=== PATIENT | male | born 1980 | race African-American/Black ===

== ENCOUNTER 2022-09-16 09:34 | Inpatient (IN) | payer SELFPAY ==
[2022-09-16] MEDS ORDERED: Sodium Chloride 0.9% 1,000 ML IV STA ×3 (10:22→14:48)
[2022-09-16 11:04] LABS: CORONAVIRUS COVID-19 NAA NEGATIVE (NEGATIVE); INFLUENZA A NAA NEGATIVE (NEGATIVE); INFLUENZA B NAA NEGATIVE (NEGATIVE)
[2022-09-16 11:29] LABS: CARBON DIOXIDE,CO2 16.8 mmol/L (21.0-32.0); POTASSIUM,K 5.1 mmol/L (3.5-5.1)
[2022-09-16] MEDS ORDERED: Insulin Regular in 0.9 % NACL 100 ML IV SCH (12:26)
[2022-09-16] MEDS ORDERED: Amoxicillin/Clavulanate K 875-125 MG Tab PO STA (12:41)
[2022-09-16 14:41] LABS: CARBON DIOXIDE,CO2 18.5 mmol/L (21.0-32.0)
[2022-09-16 14:42] LABS: POTASSIUM,K 5.8 mmol/L (3.5-5.1)
[2022-09-16] MEDS ORDERED: Sodium Chloride 0.9% 1,000 ML IV SCH (15:45)
[2022-09-16 18:34] LABS: POTASSIUM,K 3.6 mmol/L (3.5-5.1)
[2022-09-16] MEDS ORDERED: Potassium Chloride 10% 20 MEQ/15 ML Soln 30 ML UD Cup PO ONE (18:57)
[2022-09-16] MEDS: NS + KCl 20mEq/L 1,000 ML IV SCH (19:08)
[2022-09-16] MEDS ORDERED: Glucagon,Human Recombinant 1 MG Vial IM PRN ×2 (19:17→19:28)
[2022-09-16] MEDS ORDERED: 50% Dextrose in Water 50 ML Syringe IVPUSH PRN ×2 (19:17→19:28)
[2022-09-16] MEDS: Insulin Detemir 100 Units/ML 3 ML Pen SUBCUT SCH (20:16)
[2022-09-16] MEDS: Insulin Aspart 100 Units/ML 3 ML Pen SUBCUT SCH (20:17)
[2022-09-16 23:41] LABS: CARBON DIOXIDE,CO2 23.7 mmol/L (21.0-32.0); POTASSIUM,K 4.1 mmol/L (3.5-5.1)
[2022-09-17] MEDS: NS + KCl 20mEq/L 1,000 ML IV SCH (01:31)
[2022-09-17 05:03] LABS: CARBON DIOXIDE,CO2 19.6 mmol/L (21.0-32.0)
[2022-09-17 07:45] LABS: HEMOGLOBIN A1C >14.0 %
[2022-09-17] MEDS: Insulin Aspart 100 Units/ML 3 ML Pen SUBCUT SCH ×6 (08:14→21:05)
[2022-09-17] MEDS: Amoxicillin/Clavulanate K 875-125 MG Tab PO SCH ×2 (09:42→21:02)
[2022-09-17 10:23] LABS: CARBON DIOXIDE,CO2 22.4 mmol/L (21.0-32.0); POTASSIUM,K 4.5 mmol/L (3.5-5.1)
[2022-09-17] MEDS ORDERED: Insulin Detemir 100 Units/ML 3 ML Pen SUBCUT ONE (10:37)
[2022-09-17] MEDS ORDERED: Insulin Aspart 100 Units/ML 3 ML Pen SUBCUT ONE (10:37)
[2022-09-17 12:15] LABS: CARBON DIOXIDE,CO2 24.6 mmol/L (21.0-32.0); POTASSIUM,K 4.2 mmol/L (3.5-5.1)
[2022-09-17 16:17] LABS: POTASSIUM,K 3.9 mmol/L (3.5-5.1)
[2022-09-17] MEDS: Insulin Detemir 100 Units/ML 3 ML Pen SUBCUT SCH (21:02)
[2022-09-18 06:15] LABS: CARBON DIOXIDE,CO2 26.7 mmol/L (21.0-32.0); POTASSIUM,K 3.2 mmol/L (3.5-5.1)
[2022-09-18] MEDS ORDERED: Potassium Chloride 20 MEQ Tab.ER PO ONE (07:35)
[2022-09-18] MEDS: Insulin Aspart 100 Units/ML 3 ML Pen SUBCUT SCH ×4 (07:42→12:04)
[2022-09-18] MEDS: Amoxicillin/Clavulanate K 875-125 MG Tab PO SCH (08:17)
== END 2022-09-18 13:15 | disposition home or self-care (01) | DRG 638 ==
LOC: MW.ED 09:34 → MW.ICU 14:44 → MW.MS 09-17 17:36
PROVIDERS: ADMIT Internal Medicine; ATTEND Internal Medicine
DX: E11.10 Type 2 diabetes mellitus with ketoacidosis without coma (principal); Z68.1 Body mass index [BMI] 19.9 or less, adult; K04.7 Periapical abscess without sinus; I10 Essential (primary) hypertension; F17.200 Nicotine dependence, unspecified, uncomplicated; Z20.822 Contact with and (suspected) exposure to COVID-19; R63.4 Abnormal weight loss; Z88.6 Allergy status to analgesic agent
CPT/HCPCS: 0240U; 36415; 71045; 71045-26; 80048; 80053; 81001; 82803; 82947; 83036; 83690; 83735; 84132; 84439; 84443; 85025; 93005; 93010; 96360; 96361; 99285; 99285-25; A9270-GY; J1815; J1815-GY; J3480; J7030

== ENCOUNTER 2022-09-20 20:11 | Emergency (ER) | payer SELFPAY ==
[2022-09-20 22:24] LABS: CARBON DIOXIDE,CO2 27.1 mmol/L (21.0-32.0); POTASSIUM,K 3.9 mmol/L (3.5-5.1)
[2022-09-20] MEDS ORDERED: Insulin Aspart 100 Units/ML 3 ML Pen SUBCUT STA (22:35)
[2022-09-20] MEDS ORDERED: Glucagon,Human Recombinant 1 MG Vial IM PRN (22:35)
[2022-09-20] MEDS ORDERED: 50% Dextrose in Water 50 ML Syringe IVPUSH PRN (22:35)
[2022-09-20] MEDS ORDERED: Insulin Regular, Human 100 Units/ML 10 ML Vial ONE (23:22)
[2022-09-20] MEDS ORDERED: Insulin Regular, Human 100 Units/ML 10 ML Vial SUBCUT ONE (23:25)
[2022-09-21] MEDS ORDERED: Insulin Regular, Human 100 Units/ML 10 ML Vial SUBCUT ONE (00:22)
== END 2022-09-21 01:16 | disposition home or self-care (01) ==
LOC: MW.ED 20:11
DX: R60.0 Localized edema (principal); E11.65 Type 2 diabetes mellitus with hyperglycemia; E11.10 Type 2 diabetes mellitus with ketoacidosis without coma; I10 Essential (primary) hypertension; Z72.0 Tobacco use; Z88.5 Allergy status to narcotic agent; Z79.4 Long term (current) use of insulin; Z79.899 Other long term (current) drug therapy
CPT/HCPCS: 36415; 71046; 71046-26; 80053; 82947; 83880; 84484; 85025; 93005; 93010; 99284; 99285; J1815-GY

== ENCOUNTER 2022-10-17 19:15 | Emergency (ER) | payer SELFPAY | END 2022-10-17 19:53 | LOC: MW.ED 19:15 | DX: Z02.89 Encounter for other administrative examinations (principal); I10 Essential (primary) hypertension; E11.9 Type 2 diabetes mellitus without complications; Z72.0 Tobacco use; Z88.5 Allergy status to narcotic agent; Z79.4 Long term (current) use of insulin; Z79.899 Other long term (current) drug therapy | CPT/HCPCS: 82947; 99283 ==